=== PATIENT | male | born 1965 | race Two or more races ===

== ENCOUNTER 2020-02-08 18:57 | Emergency (ER) | payer SELFPAY ==
[~2020-02-08] VITALS: Ht 160 cm; Wt 68.0 kg
[2020-02-08] MEDS ORDERED: IV NORMAL SALINE 1000ML BAG 1,000 ML IV SCH (19:15)
--- NOTE | 2020-02-08 19:25 | PHYS DOC ---
General Adult EDM: Chief Complaint: FEVER HPI: HPI: Patient is a 54 year old male who presents with complaint of fever, cough, diarrhea with body aches and chills for the last couple of days. He denies chest pain or shortness of breath. He denies any abdominal pain. Patient states that he has been at home with family and his father is exhibiting very similar symptoms.[] Review of Systems: Review of Systems: Constitutional: Positive fever and chills. [] Respiratory: Positive cough without shortness of breath. [] Cardiovascular: Denies chest pain or edema. [] GI: Denies abdominal pain, nausea or vomiting. Complains of diarrhea. [] Neurologic: Complains of mild headache without focal weakness or sensory changes. [] A full 10 point review of systems has been reviewed and is otherwise negative. Heart Score: Risk Factors: Risk Factors: DM, Current or recent (<one month) smoker, HTN, HLP, family history of CAD, obesity. Risk Scores: Score 0 - 3: 2.5% MACE over next 6 weeks - Discharge Home Score 4 - 6: 20.3% MACE over next 6 weeks - Admit for Clinical Observation Score 7 - 10: 72.7% MACE over next 6 weeks - Early Invasive Strategies Current Medications: Current Medications Medications (Trade) Dose Ordered Sig/Mary Jane Start Time Stop Time Status Last Admin Dose Admin Sodium Chloride 1,000 ml @ 1,000 mls/hr Q1H 02/08/20 19:15 02/08/20 20:14 UNV Physical Exam: PE: Constitutional: Well developed, well nourished, no acute distress, non-toxic appearance. [] HENT: Normocephalic, atraumatic, bilateral external ears normal, oropharynx moist, no oral exudates, nose normal. [] Eyes: PERRLA, EOMI, conjunctiva normal, no discharge. [] Neck: Normal range of motion, no tenderness, supple, no stridor. [] Cardiovascular: Regular rate and rhythm[] Lungs & Thorax: Bilateral breath sounds clear to auscultation [] Abdomen: Bowel sounds normal, soft, no tenderness. [] Skin: Warm, dry, no erythema, no rash. [] Extremities: No tenderness, no cyanosis, no clubbing, ROM intact, no edema. [] Neurologic: Alert and oriented X 3, no focal deficits noted. [] EKG: EKG: [] Radiology/Procedures: Radiology/Procedures: [] Impression: PROCEDURE: PORTABLE CHEST 1V AP portable chest radiograph 02/08/2020 Clinical History: Cough. An AP erect portable digital radiograph of the chest was obtained. No previous studies are available for comparison. The cardiac silhouette is borderline enlarged. The thoracic aorta is mildly tortuous. No acute pulmonary infiltrate is seen. No pleural effusion or pneumothorax is noted. Degenerative changes are seen involving the thoracic spine and both shoulders. IMPRESSION: No acute abnormality is seen. Electronically signed by: Binu Mcmullen MD (02/08/2020 8:16 PM) [id number] DICTATED and SIGNED BY: BINU MCMULLEN MD DATE: 02/08/202015 Course & Med Decision Making: Course & Med Decision Making Pertinent Labs and Imaging studies reviewed. (See chart for details) [] Dragon Disclaimer: Dragon Disclaimer: This electronic medical record was generated, in whole or in part, using a voice recognition dictation system. Departure Departure Impression: Primary Impression: Influenza A Disposition: HOME, SELF-CARE Condition: STABLE Patient Instructions: Influenza, Adult Scripts Oseltamivir Phosphate (TAMIFLU) 75 Mg Capsule 1 CAP PO BID, #10 CAP Prov: LEONIE TUCKER Jr. DO 02/08/20 LEONIE TUCKER Jr. DO Feb 08, 2020 19:25
[2020-02-08 19:46] LABS: BASO % 1 % (0-3); EOS % 1 % (0-3); HEMATOCRIT 41.4 % (39.0-53.0); HEMOGLOBIN 14.4 g/dL (13.0-17.5); LYMPH # 2.1 x10^3/uL (1.0-4.8); LYMPH % 46 % (24-48); MEAN CORPUSCULAR HEMOGLOBIN 29 pg (25-35); MEAN CORPUSCULAR HGB CONC 35 g/dL (31-37); MEAN CORPUSCULAR VOLUME 83 fL (79-100); MONO # 0.5 x10^3/uL (0.0-1.1); MONO % 11 % (0-9); NEUT # 1.8 x10^3/uL (1.8-7.7); NEUT % 41 % (31-73); PLATELET COUNT 163 x10^3/uL (140-400); RED BLOOD COUNT 5.02 x10^6/uL (4.30-5.70); RED CELL DISTRIBUTION WIDTH 13.7 % (11.5-14.5); WHITE BLOOD COUNT 4.5 x10^3/uL (4.0-11.0)
[2020-02-08 19:58] LABS: CALCIUM 7.5 mg/dL (8.5-10.1); CREATININE 1.1 mg/dL (0.7-1.3); GFR 70.3; POTASSIUM 3.9 mmol/L (3.5-5.1)
[2020-02-08 20:11] LABS: ALBUMIN 3.5 g/dL (3.4-5.0); TOTAL BILIRUBIN 0.6 mg/dL (0.2-1.0)
--- NOTE | 2020-02-08 20:19 | RAD ---
AP portable chest radiograph 02/08/2020 Clinical History: Cough. An AP erect portable digital radiograph of the chest was obtained. No previous studies are available for comparison. The cardiac silhouette is borderline enlarged. The thoracic aorta is mildly tortuous. No acute pulmonary infiltrate is seen. No pleural effusion or pneumothorax is noted. Degenerative changes are seen involving the thoracic spine and both shoulders. IMPRESSION: No acute abnormality is seen. Electronically signed by: Binu Aguilar MD (02/08/2020 8:16 PM) [id number]
[2020-02-08 20:30] LABS: TOTAL PROTEIN 7.1 g/dL (6.4-8.2)
[2020-02-08 20:42] LABS: INFLUENZA A PATIENT POSITIVE (NEGATIVE); INFLUENZA B PATIENT NEGATIVE (NEGATIVE)
[2020-02-08 20:53] LABS: BILIRUBIN,URINE NEGATIVE (NEG); CLARITY,URINE CLEAR; COLOR,URINE YELLOW; NITRITE,URINE NEGATIVE (NEG); PH,URINE 6.5 (<5.0-8.0); PROTEIN,URINE NEGATIVE (NEG-TRACE); UROBILINOGEN,URINE 0.2 mg/dL (0.2 mg/dL)
[2020-02-08 21:01] LABS: BACTERIA,URINE 0 /HPF (0-FEW); RBC,URINE 0 /HPF (0-2); SQUAMOUS EPITHELIAL CELL,UR OCC /LPF; WBC,URINE 0 /HPF (0-4)
[2020-02-08] MEDS ORDERED: OSELTAMIVIR 75 MG CAPSULE PO ONE (22:00)
[2020-02-08] MEDS ORDERED: OSEL75CA PO (22:10)
[2020-02-08 22:15] VITALS: BP 109/73
--- NOTE | 2020-02-10 10:26 | NUR ---
IP: Pt is COVID +. [facility] notified.
== END 2020-02-08 22:15 | disposition home or self-care (01) ==
LOC: ER 18:57
DX: J11.1 Influenza due to unidentified influenza virus with other respiratory manifestations (principal)
CPT/HCPCS: 36415; 71045; 80053; 81001; 83605; 85025; 87040; 87070; 87635; 87804; 87880; 99285; J7030

== ENCOUNTER 2021-03-26 21:42 | Emergency (ER) | payer MEDICAID, SELFPAY ==
[~2021-03-26] VITALS: Ht 162.6 cm; Wt 63.6 kg
[~2021-03-26 21:42] MED LIST: OSEL75CA PO
[2021-03-26] MEDS ORDERED: CYCL10TA2 PO (23:07)
[2021-03-26] MEDS ORDERED: NAPR-514 PO (23:07)
[2021-03-26] MEDS ORDERED: HYDR-2761 PO (23:07)
[2021-03-26] MEDS ORDERED: NAPROXEN 500 MG TABLET PO STA (23:08)
--- NOTE | 2021-03-26 23:08 | PHYS DOC ---
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 Patient states symptoms are worse on movement. Denies any loss of bowel/bladder function. Patient states he has tried home remedies with no relief. 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 [] GI: Denies abdominal pain, nausea, vomiting, bloody stools or diarrhea. [] : Denies dysuria. [] Musculoskeletal: Reports low back pain Integument: Denies rash. [] Neurologic: Denies headache, focal weakness or sensory changes. [] Psychiatric: Denies depression or anxiety. 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 [] Abdomen: Bowel sounds normal, soft, no tenderness, no masses, no pulsatile ma sses. [] Skin: Warm, dry, no erythema, no rash. [] Back: Diffuse paraspinal muscle tenderness to bilateral lumbar spine, no midline lumbar spine tenderness, no CVA tenderness. [] Extremities: No tenderness, no cyanosis, no clubbing, ROM intact, no edema. [] Neurologic: Alert and oriented X 3, normal motor function, normal sensory function, no focal deficits noted. [] Psychologic: Affect normal, judgement normal, mood normal. [] (HORACE VIRAMONTES APRN) EKG: EKG: [] (HORACE VIRAMONTES APRN) Radiology/Procedures: Radiology/Procedures: [] (HORACE VIRAMONTES APRN) Course & Med Decision Making: Course & Med Decision Making Pertinent Labs and Imaging studies reviewed. (See chart for details) This is a 55-year-old male patient presenting to the ED today with lumbosacral strain after doing yard work yesterday. No cauda equina syndrome symptoms. Discharge to home with hydrocodone Flexeril and naproxen. Follow-up with PCP in 1 week (HORACE VIRAMONTES APRN) Course & Med Decision Making The chart was reviewed. Care and treatment plan made by midlevel provider. I was available for consult. (PETTY WHITLEY I DO) Quentin Disclaimer: Quentin Disclaimer: This electronic medical record was generated, in whole or in part, using a voice recognition dictation system. (HORACE VIRAMONTES APRN) Departure Departure Impression: Primary Impression: Acute lumbosacral myofascial strain Qualified Codes: S39.012A - Strain of muscle, fascia and tendon of lower back, initial encounter Disposition: HOME / SELF CARE / HOMELESS Condition: STABLE Referrals: ARUN JACK MD (PCP) Follow-up in 1 week Patient Instructions: Lumbosacral Strain Additional Instructions: You were seen for muscle strain of your back. Take the prescribed medications as ordered. Follow-up with your doctor in 1 to 2 weeks. Apply heating pad to your back. Scripts Naproxen (NAPROXEN) 500 Mg Tablet 1 TAB PO BID for pain, #20 TAB 0 Refills Prov: YENCINTHIAHORACE Mata APRN 03/26/21 Cyclobenzaprine Hcl (CYCLOBENZAPRINE HCL) 10 Mg Tablet 1 TAB PO TID, #30 TAB Prov: WANDERHORACE [place] COLEMAN 03/26/21 Hydrocodone Bit/Acetaminophen (HYDROCODONE-APAP 5-325 ) 1 Tab Tablet 1 TAB PO PRN Q6HRS PRN for PAIN, #10 TAB 0 Refills Prov: MUTUNGHORACE Mata APRN 03/26/21 HORACE VIRAMONTES APRN Mar 26, 2021 23:08 PETTY WHITLEY DO Mar 27, 2021 20:24
[2021-03-26] MEDS ORDERED: HYDROcodone/APAP 5/325MG 1 TAB TABLET PO ONE (23:15)
[2021-03-26] MEDS ORDERED: CYCLOBENZAPRINE 10 MG TABLET. PO ONE (23:15)
[2021-03-26 23:30] VITALS: BP 114/72
== END 2021-03-26 23:32 | disposition home or self-care (01) ==
LOC: ER 21:42
DX: S39.012A Strain of muscle, fascia and tendon of lower back, initial encounter (principal); X50.9XXA Other and unspecified overexertion or strenuous movements or postures, initial encounter; Y93.89 Activity, other specified; Y92.89 Other specified places as the place of occurrence of the external cause; Y99.8 Other external cause status
CPT/HCPCS: 99284

== ENCOUNTER 2021-06-26 17:59 | Emergency (ER) | payer MEDICAID ==
[~2021-06-26] VITALS: Ht 147.3 cm; Wt 60.0 kg
[~2021-06-26 17:59] MED LIST changes: +CYCL10TA2 PO; +HYDR-2761 PO; +NAPR-514 PO
--- NOTE | 2021-06-26 20:42 | PHYS DOC ---
Past Medical History Past Medical History: No Pertinent History Past Surgical History: No Surgical History Smoking Status: Never Smoker Alcohol Use: None General Adult EDM: Chief Complaint: NAUSEA/VOMITING/DIARRHEA HPI: HPI: Patient is a 55 year old male with past medical history of chronic lower back pain presents with a chief complaint of nausea vomiting diarrhea. Patient states around 7 AM this morning she took 2 unknown pain tablets from previous prescription and shortly after started to have some nausea vomiting and diarrhea. Patient states he has vomited approximately 5 times with the last episode occurring in the waiting room. Patient states he has had 5 episodes of diarrhea with collapsed episode happening approximately 1 hour prior to arrival. Patient states he has some cramping in his abdominal region associated with nausea. Patient denies any associated chest pain or shortness of breath or upper respiratory signs and symptoms. Patient's abdominal exam--soft without rebound or guarding. Patient has been vaccinated against COVID-19. Review of Systems: Review of Systems: Review of systems: Constitutional symptoms- No fever, no chills. Eyes- No Discharge, No Visual Loss Respiratory symptoms- No shortness of breath, No wheezing, No Dyspnea on Exertion Cardiovascular Systems; No chest pain, No Palpitations, No syncope Gastrointestinal symptoms: Positive abdominal pain, Positive nausea, Positive vomiting no diarrhea. Genitourinary symptoms: No dysuria. Musculoskeletal symptoms: No back pain No extremity pain. NEUROLOGICAL Symptoms: No headache, no generalized weakness; No focal Weakness Skin: No rash. Heart Score: C/O Chest Pain: N/A Risk Factors: Risk Factors: DM, Current or recent (<one month) smoker, HTN, HLP, family histo ry of CAD, obesity. Risk Scores: Score 0 - 3: 2.5% MACE over next 6 weeks - Discharge Home Score 4 - 6: 20.3% MACE over next 6 weeks - Admit for Clinical Observation Score 7 - 10: 72.7% MACE over next 6 weeks - Early Invasive Strategies Current Medications: Current Medications Medications (Trade) Dose Ordered Sig/Mary Jane Start Time Stop Time Status Last Admin Dose Admin Ondansetron HCl (Zofran) 4 mg 1X ONCE 06/26/21 21:00 06/26/21 21:01 Sodium Chloride 1,000 ml @ 1,000 mls/hr 1X ONCE 06/26/21 21:00 06/26/21 21:59 Allergies: Allergies: Allergies Coded Allergies Type Severity Reaction Last Updated Verified No Known Drug Allergies 02/08/20 No Physical Exam: PE: General: alert, no acute distress. Skin: warm, dry and intact, no erythema, no rash. HENT: bilateral external ears normal, oropharynx moist, nose normal. Head:: Normocephalic, atraumatic. Neck: Trachea midline. Eyes: EOMI, Normal conjunctiva, No drainage CARDIOVASCULAR: Regular rate and rhythm RESPIRATORY: No respiratory distress Back: Full range of motion. MUSCULOSKELETAL: Full range of motion of bilateral upper and lower extremities. GASTROINTESTINAL: Abdomen soft without rebound or guarding. NEUROLOGICAL: Alert and noted to person, place and time. No neurological deficits observed Psychiatric: Cooperative. Normal judgment Current Patient Data: Vital Signs: Vital Signs Date Time Temp Pulse Resp B/P (MAP) Pulse Ox O2 Delivery O2 Flow Rate FiO2 06/26/21 20:20 98.1 66 18 174/99 (124) 99 Room Air 98.1 EKG: EKG: [] Radiology/Procedures: Radiology/Procedures: [] Course & Med Decision Making: Course & Med Decision Making Pertinent Labs and Imaging studies reviewed. (See chart for details) [] Patient was evaluated for chief complaint. Work-up consisted of laboratory analysis. Treatment included Zofran and IV fluids. Patient's lab without significant abnormalities. Patient was discharged home with instructions to follow-up with primary care physician. Patient was prescribed Zofran. Dragon Disclaimer: Quentin Disclaimer: This electronic medical record was generated, in whole or in part, using a voice recognition dictation system. Departure Departure Impression: Primary Impression: Nausea & vomiting Disposition: 01 HOME / SELF CARE / HOMELESS Condition: STABLE Referrals: ARUN JACK MD (PCP) Patient Instructions: Nausea and Vomiting Scripts Ondansetron Hcl (ZOFRAN) 4 Mg Tablet 1 TAB PO Q6HRS, #20 TAB Prov: PETTY WHITLEY DO 06/26/21 PETTY WHITLEY DO Jun 26, 2021 20:41
[2021-06-26 20:50] LABS: BASO # 0.1 x10^3/uL (0.0-0.2); BASO % 1 % (0-3); EOS # 0.2 x10^3/uL (0.0-0.7); EOS % 3 % (0-3); HEMATOCRIT 39.5 % (39.0-53.0); HEMOGLOBIN 13.7 g/dL (13.0-17.5); LYMPH # 1.5 x10^3/uL (1.0-4.8); LYMPH % 27 % (24-48); MEAN CORPUSCULAR HEMOGLOBIN 28 pg (25-35); MEAN CORPUSCULAR HGB CONC 35 g/dL (31-37); MEAN CORPUSCULAR VOLUME 82 fL (79-100); MONO # 0.6 x10^3/uL (0.0-1.1); MONO % 11 % (0-9); NEUT # 3.2 x10^3/uL (1.8-7.7); NEUT % 58 % (31-73); PLATELET COUNT 199 x10^3/uL (140-400); RED BLOOD COUNT 4.81 x10^6/uL (4.30-5.70); RED CELL DISTRIBUTION WIDTH 14.2 % (11.5-14.5); WHITE BLOOD COUNT 5.5 x10^3/uL (4.0-11.0)
[2021-06-26] MEDS ORDERED: ONDANSETRON PF 4 MG/2 ML VIAL. IVP ONE (21:00)
[2021-06-26] MEDS ORDERED: IV NORMAL SALINE 1000ML BAG 1,000 ML IV ONE (21:00)
[2021-06-26 21:06] LABS: CALCIUM 8.9 mg/dL (8.5-10.1); CREATININE 0.9 mg/dL (0.7-1.3)
[2021-06-26 21:07] LABS: GFR 88.3
[2021-06-26 21:15] LABS: ALBUMIN 4.3 g/dL (3.4-5.0); ALBUMIN/GLOBULIN RATIO 1.3 (1.0-1.7); TOTAL BILIRUBIN 0.7 mg/dL (0.2-1.0); TOTAL PROTEIN 7.7 g/dL (6.4-8.2)
[2021-06-26 23:08] LABS: BILIRUBIN,URINE NEGATIVE (NEG); CLARITY,URINE CLEAR; COLOR,URINE YELLOW; NITRITE,URINE NEGATIVE (NEG); PH,URINE 6.5 (<5.0-8.0); PROTEIN,URINE NEGATIVE (NEG-TRACE); UROBILINOGEN,URINE 0.2 mg/dL (0.2 mg/dL)
[2021-06-26 23:23] LABS: BACTERIA,URINE 0 /HPF (0-FEW)
[2021-06-26] MEDS ORDERED: ONDA4TAB7 PO (23:28)
[2021-06-26 23:49] VITALS: BP 125/89
== END 2021-06-27 00:07 | disposition home or self-care (01) ==
LOC: ER 17:59
DX: R11.2 Nausea with vomiting, unspecified (principal); R19.7 Diarrhea, unspecified; G89.29 Other chronic pain; M54.5 Low back pain
CPT/HCPCS: 36415; 80053; 81001; 83690; 85025; 96361; 96374; 99283; J2405; J7030